=== PATIENT | male | born 2000 | race Caucasian/White ===

== ENCOUNTER 2021-06-15 20:18 | Emergency (ER) | payer OTHER ==
[~2021-06-15] VITALS: Ht 157.5 cm; Wt 122.7 kg
[2021-06-15 20:32] VITALS: TEMP 97.2
[2021-06-15 22:44] VITALS: BP 132/82; PULSE 89
[2021-06-16] MEDS ORDERED: CRUTCHES MC (01:21)
== END 2021-06-15 22:44 | disposition home or self-care (01) ==
LOC: COL.ER 20:18
DX: S93.401A Sprain of unspecified ligament of right ankle, initial encounter (principal); F17.210 Nicotine dependence, cigarettes, uncomplicated; X50.1XXA Overexertion from prolonged static or awkward postures, initial encounter; Y93.01 Activity, walking, marching and hiking